=== PATIENT | male | born 1985 | race African-American/Black ===

== ENCOUNTER 2024-02-17 10:28 | Emergency (ER) | payer OTHER, SELFPAY ==
--- NOTE | ~2024-02-17 | XR_ITS ---
EXAMINATION: XR THORACIC SPINE CLINICAL INFORMATION: Pain. COMPARISON: None available. TECHNIQUE: 3 views of the thoracic spine were obtained. FINDINGS: Thoracic spinal alignment is anatomic in the sagittal projection. Vertebral body heights are preserved. Intervertebral disc space heights are preserved. There is no acute fracture. Visualized lungs are clear. There are degenerative changes at C5-6 and C6-7. XR/XR thoracic spine 3V IMPRESSION: No acute thoracic spine osseous abnormality. Electronically signed by: Oswaldo Frederick DO 02/17/2024 03:53 PM EDT
[2024-02-17 10:41] VITALS: BP 172/88; PULSE 103; RESP 18; TEMP 37.2; O2SAT 99; BMI 31.3
[2024-02-17 13:10] VITALS: BP 135/84; PULSE 71; RESP 16; TEMP 36.1; O2SAT 98
[2024-02-17 14:45] VITALS: BP 136/94; PULSE 75; RESP 14; TEMP 35.9; O2SAT 98
--- NOTE | 2024-02-17 15:57 | ED.GENADULT ---
HPI - General Adult General Chief complaint: General Medical Stated complaint: back pain Time Seen by Provider: 02/17/24 12:22 History of Present Illness HPI narrative: Patient complains of upper back pain going on for over a year without any major trauma, it waxes and wanes in intensity and he comes here today as it has been hurting more in the last couple of days There is no recent new injury, there is no loss of motor strength there is no loss of sensation no incontinence no changes to bowel or bladder no burning no incontinence no abdominal pain no chest pain Related Data Previous Rx's ?Medication ?Instructions ?Recorded acetaminophen 500 mg tablet 1,000 mg (2 x 500 mg) PO QID PRN 02/17/24 pain #30 tabs ibuprofen 600 mg tablet 600 mg PO Q6H PRN pain #20 tabs 02/17/24 Allergies Allergy/AdvReac Type Severity Reaction Status Date / Time No Known Allergies Allergy Verified 02/17/24 10:47 [facility] Past Medical History Source: nursing notes reviewed Social History Social History Advance Directives: No Advance Directives Information Provided: Yes Do you have a plan to hurt others: No Plan Physical Exam ED Vital Signs: Vital Signs - 24 hr 02/17/24 10:41 02/17/24 13:10 02/17/24 14:45 Temperature 98.9 F 96.9 F 96.6 F L Pulse Rate 103 H 71 75 Respiratory Rate 18 16 14 Blood Pressure 172/88 H 135/84 136/94 H Pulse Oximetry 99 98 98 Oxygen Delivery Method Room Air Room Air Room Air 02/17/24 16:08 Temperature 96.6 F L Pulse Rate 75 Respiratory Rate 14 Blood Pressure 136/94 H Pulse Oximetry 98 Oxygen Delivery Method Room Air BMI result Body Mass Index 31.3 General appearance no distress Head is normocephalic atraumatic Neck is supple Respiratory no distress Chest clear to auscultation bilateral The abdomen soft nontender The back had between the scapula on both sides there is soft tissue tenderness no focal bony tenderness, skin of the back is normal pain is reproduced with certain movements no pain with deep breath Extremities full range of motion x4 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 and sensation is intact and symmetrical Course Course Course Narrative: Thoracic spine x-ray was without significant abnormality, patient is comfortable throughout visit and is referred to primary care and will use Tylenol or Motrin as needed Exam is consistent with musculoskeletal upper back pain Discharge Plan Discharge Clinical Impression: Back pain Patient Disposition: Home, Self-Care Additional Instructions: The pain is likely from muscles and tendon irritation in the back Your x-ray of the thoracic spine was normal no worrisome abnormalities Your exam did not show any signs of any dangerous condition When you get a primary care doctor you can follow-up for physical therapy Tylenol and Motrin may help Return to the ER any time any worse condition or concerns Prescriptions: New acetaminophen 500 mg tablet 1,000 mg PO QID PRN (Reason: pain) Qty: 30 0RF ibuprofen 600 mg tablet 600 mg PO Q6H PRN (Reason: pain) Qty: 20 0RF Interventions: ED Discharge Assessment Last Done: 02/17/24 16:08 Discharge Date/Time: 02/17/24 16:08 Print Language: Margot Stokes
[2024-02-17 16:08] VITALS: BP 136/94; PULSE 75; RESP 14; TEMP 35.9; O2SAT 98
== END 2024-02-17 16:08 | disposition home or self-care (01) ==
PROVIDERS: Emergency Provider Internal Medicine
DX: M54.6 Pain in thoracic spine (principal)
CPT/HCPCS: 72072; 99283

== ENCOUNTER 2024-07-18 13:48 | Outpatient (AMB) | payer OTHER, SELFPAY ==
--- NOTE | 2024-07-18 14:18 | MHC.PC.OV ---
Vital Signs 07/18/24 14:30 Height 5 ft 6.96 in Weight 197 lb 6 oz BMI 30.9 BP 142/92 H Blood Pressure Location Lt brachial Position Sitting Pulse 82 Pulse Source Pulse Oximeter Temp 96.7 F L Temp Source Temporal Artery Scan Pulse Oximetry (%) 97 Oxygen Delivery Method Room Air Intake Visit Reasons: Establish Patient - PHYSICIAN GENERAL INTERNAL MEDICINE Intake Note: The patient is a new arrival seeking to establish care for low back pain (LBP) that has persisted for the past year. Blood pressure was elevated today. The patient has been in the state for the past nine months, having recently moved from [facility]. Chairman Of The Board Required: Yes Chairman Of The Board Language: Mosotho Creole Chairman Of The Board Name: used [id number] [facility] [place] Accompanied by: Self / Same As Patient Allergies No Known Allergies Allergy (Verified 07/18/24 15:10) Medication List - Last Reconciled 07/18/24 by Esteban Hernandez PA-C No Known Home Meds Tobacco use date assessed: 07/18/24 Dental Screening Dental Screen Date: 07/18/24 Did you have a dental visit in the last 12 months?: No Did you have a dental problem in the last 6 months where you did not have access to dental care?: No Was dental information given to patient?: Patient has dentist HPI Establish Patient - PHYSICIAN GENERAL INTERNAL MEDICINE HPI Details The patient is a 38-year-old male presenting with follow-up concerns related to hypertension and a history of cervical pain. He is Mosotho Creole speaking only thus used a remote marine electronics technician for this encounter.. He was initially informed of high blood pressure while in [place] and engaged in periodic hospital follow-ups. He has now observed elevated blood pressure once again, requiring clinical assessment. Complains of neck pain associated with cervical spondylosis which was previously identified on an X-ray revealing degenerative changes at C5-C6. Reports indicate the cervical pain fluctuates in intensity and occasionally migrates to the lower back and arms, causing numbness. FORMERLY [facility], [facility]–1983 Social History (Updated 07/18/24 @ 15:24 by Esteban Hernandez PA-C) Housing: House Patient Tobacco Use Status: Never used Tobacco Tobacco use type: Cigarette e-Cigarette/Vaping Use: Never Used service: No Current occupational status: employed Current occupation: [employer] Cognitive needs: No Hearing needs: No Vision needs: No Questionnaire PHQ-9 Over the last 2 weeks, how often have you been bothered by any of the following problems? 1. Little interest or pleasure in doing things: not at all 2. Feeling down, depressed, or hopeless: not at all 3. Trouble falling or staying asleep, or sleeping too much: not at all 4. Feeling tired or having little energy: not at all 5. Poor appetite or overeating: not at all 6. Feeling bad about yourself - or that you are a failure or have let yourself or your family down: not at all 7. Trouble concentrating on things, such as reading the newspaper or watching television: not at all 8. Moving or speaking so slowly that other people could have noticed. Or the opposite - being so fidgety or restless that you have been moving around a lot more than usual: not at all 9. Thoughts that you would be better off or of hurting yourself in some way: not at all Total score: 0 Depression Screening Interpretation: Negative Depression Screening Done: Yes 88458 - PHQ-9 Billing: Yes Source: Developed by Drs. Garland Durham, Skye Marroquin, Jair Lizarraga and colleagues, with an educational latisha from [employer]. Thrive Questionnaire Date Thrive assessed: 07/18/24 I am a: Patient What is your living situation today?: I have a steady place to live Within the past 12 months, did the food you bought not last and you didn't have the money to get more?: Never true Within the past 12 months, did you worry whether your food would run out before you got money to buy more?: Never true Do you have trouble paying for medicines?: No Do you have trouble getting transportation to medical appointments?: No Do you have trouble paying your heating and electricity bill?: No Do you have trouble taking care of your child, family member or friend?: No Do you have trouble with day-to-day activities such as bathing, preparing meals, shopping, managing finances, etc.?: No Are you currently unemployed and looking for a job?: No Are you interested in more education?: No Please select the resources that you would like help with: None Currently or been in a relationship where the following occur: No concerns reported THRIVE Score: 0 AUDIT C Alcohol Use Questionnaire (AUDIT-C) 1. How often do you have a drink containing alcohol?: Never 3. How often do you have six or more drinks on one occasion?: Never Total Score: 0 ISAMAR-7 AMB Questionnaire ISAMAR-7 Date ISAMAR - 7 assessed: 07/18/24 Source: Developed by Drs. Garland Durham, Skye Marroquin, Jair Lizarraga and colleagues, with an educational latisha from [employer]. Review of Systems Const Denies headache(s) Eyes Denies loss of vision ENT Denies vertigo, Denies dizziness, Denies headache(s) and Denies sore throat Card Denies chest pain, Denies leg edema and Denies lightheadedness Resp Denies cough, Denies hemoptysis and Denies wheezing GI Denies abdominal pain, Denies melena, Denies constipation, Denies diarrhea and Denies vomiting Denies dysuria, Denies urinary frequency and Denies urinary urgency Musc Denies arthralgias, Denies joint swelling, Denies numbness and Denies tingling Neuro Denies Abnormal speech present, Denies behavioral changes, Denies vertigo, Denies dizziness, Denies headache(s), Denies loss of vision, Denies memory loss, Denies numbness and Denies tingling Psych Denies anxiety, Denies behavioral changes, Denies depression, Denies memory loss and Denies panic attacks Pablo/Lymph Denies easy bleeding and Denies easy bruising Aller/Immun Denies wheezing Physical exam (Primary Care) Vital Signs: Last Vital Signs Temp 96.7 F L 07/18/24 14:30 Pulse 82 07/18/24 14:30 BP 142/92 H 07/18/24 14:30 Pulse Ox 97 07/18/24 14:30 Oxygen Delivery Method Room Air 07/18/24 14:30 BMI result Body Mass Index 30.9 Tobacco/Smoking Status: Tobacco use Status Tobacco use date assessed 07/18/24 07/18/24 14:56 Patient Tobacco Use Status Never used Tobacco 07/18/24 15:24 Tobacco use type Cigarette 07/18/24 15:24 e-Cigarette/Vaping Use Never Used 07/18/24 15:24 PHQ-9: PHQ-9 Score PHQ-9: Total score 0 07/18/24 15:12 Depression Screening Interpretation: Negative Thrive Assessment: Date of Thrive Assessment Date Thrive assessed 07/18/24 07/18/24 14:56 Currently or been in a relationship where the following occur: No concerns reported Const General: healthy appearing, no acute distress, alert and awake Nutritional Appearance: well nourished Orientation/consciousness: oriented to person, oriented to place and oriented to time HENMT Ears: TM's normal bilaterally General nose exam: Normal nasal mucous membranes and turbinates present Eyes Conjunctivae: conjunctivae normal Sclerae: sclerae normal Pupils: Equal, round and reactive pupils present Neck Neck: Yes no lymphadenopathy and Yes no JVD Thyroid: Thyroid normal Carotids: no bruits Resp Effort & Inspection: normal respiratory effort and not tachypneic Auscultation: no crackles, no rales, no rhonchi and no wheezes Cardio Rate: regular rate Rhythm: regular rhythm Heart sounds: no murmurs and normal S1 and S2 GI Palpation (GI): Soft to palpation, nontender, no hepatomegaly and no splenomegaly Auscultation: normal bowel sounds Skin General skin exam: no rashes or lesions noted and dry skin Neuro General: oriented to person, oriented to place and oriented to time Cranial nerves: Yes Equal, round and reactive pupils present Speech: No Abnormal speech present Gait exam (Neuro): Normal gait present Motor exam (neuro): no tremor noted Extrem Right upper extremity: full ROM Left upper extremity: full ROM Right lower extremity: full ROM; no edema Left lower extremity: full ROM; no edema Psych Mental Status: mental status grossly normal Speech and movement: Normal speech and movement present Affect: normal affect Attitude: cooperative Thought process: Normal thought process present Coding Level of Care Code New Pt Level 4 (05042) Diagnoses Primary hypertension I10 Hypertension type: primary hypertension Screening for diabetes mellitus (DM) Z13.1 Cervical spine pain M54.2 Class 1 obesity E66.811 Additional Codes PHQ-9 - 86634 - PHQ-9 Billing: Yes ([id number]) Assessment & Plan Assessment & Plan (1) HTN (hypertension): Code(s): I10 - Essential (primary) hypertension Category: Medical Qualifiers: Hypertension type: primary hypertension Qualified Code(s): I10 - Essential (primary) hypertension Plan: Prescribed amlodipine 5 mg once daily for blood pressure management. Follow-up blood pressure assessments to adjust treatment as necessary were recommended. (2) Screening for diabetes mellitus (DM): Code(s): Z13.1 - Encounter for screening for diabetes mellitus Category: Medical Plan: As per HPI (3) Cervical spine pain: Code(s): M54.2 - Cervicalgia Category: Medical Plan: Planned initial conservative management with physical therapy focusing on cervical and upper body exercises. If symptoms persist, further imaging may be considered. (4) Class 1 obesity: Code(s): E66.811 - Obesity, class 1 Category: Medical Plan: Patient does understand his BMI is over 30 will work on being more physically active and adapting to better eating habits to reduce his weight Orders: Orders Microalbumin, Random (w Creat) 07/18/24 I10 - Essential (primary) hypertension Complete Blood Count no Diff 07/18/24 I10 - Essential (primary) hypertension Comprehensive [place]. Panel Fast 07/18/24 I10 - Essential (primary) hypertension XR cervical spine 4V 07/18/24 M54.2 - Cervicalgia PT Evaluation and Treatment 07/18/24 M54.2 - Cervicalgia Medications: New amlodipine 5 mg PO DAILY 30 tabs 3RF 30 days I10 - Essential (primary) hypertension Discontinued ibuprofen Discontinued Reason: Patient no longer taking 600 mg PO Q6H PRN 20 tabs 0RF pain acetaminophen Discontinued Reason: Patient no longer taking 1,000 mg (2 x 500 mg) PO QID PRN 30 tabs 0RF pain
[2024-07-18 14:30] VITALS: BP 142/92; PULSE 82; TEMP 35.9; O2SAT 97; BMI 30.9
== END 2024-07-18 15:43 | disposition home or self-care (01) ==
LOC: HO.HMCH 13:48
PROVIDERS: Visit Provider Physician Assistant
DX: I10 Essential (primary) hypertension (principal); M54.2 Cervicalgia; E66.811 Obesity, class 1; Z68.30 Body mass index [BMI] 30.0-30.9, adult; Z13.1 Encounter for screening for diabetes mellitus

== ENCOUNTER → 2024-07-18 13:48 | Outpatient (BNVA) | payer OTHER, SELFPAY | PROVIDERS: Visit Provider Physician Assistant | DX: I10 Essential (primary) hypertension (principal); M54.2 Cervicalgia; E66.811 Obesity, class 1; Z68.30 Body mass index [BMI] 30.0-30.9, adult; Z71.3 Dietary counseling and surveillance | CPT/HCPCS: 96127; 99202 ==

== ENCOUNTER 2024-07-20 10:46 | Outpatient (REF) | payer OTHER, SELFPAY ==
--- NOTE | ~2024-07-20 | XR_ITS ---
EXAMINATION: XR CERVICAL SPINE CLINICAL INFORMATION: M54.2 - Cervicalgia COMPARISON: None available. TECHNIQUE: 6 views of the cervical spine, inclusive of flexion and extension views, were obtained. FINDINGS: Marginal osteophyte formation and endplate sclerosis decreased intervertebral disc height and bilateral neuroforamina narrowing/stenosis at C5-6. No acute cortical disruption. No gross malalignment. Craniocervical junction is intact. No lytic or blastic lesions. Upper airway is patent. XR/XR cervical spine 4V IMPRESSION: Spondylosis C5-6 resulting in bilateral neuroforamina stenosis. Electronically signed by: Garo Ken MD 07/23/2024 08:48 AM EDT
[2024-07-20 11:33] LABS: Hematocrit 45.4 % (42.0-52.0); Hemoglobin 15.4 g/dl (14.0-18.0); Mean Corpuscular HGB Conc 33.9 g/dl (31.0-36.0); Mean Corpuscular Hemoglobin 27.2 pg (27.0-33.0); Mean Corpuscular Volume 80.1 fL (80.0-98.0); Mean Platelet Volume 9.7 fL (9.4-12.4); Platelet Count 289 X10*3/uL (160-400); Red Blood Count 5.67 X10*6/uL (4.60-5.80); Red Cell Distribution Width 13.7 % (11.0-16.0); White Blood Count 7.2 X10*3/uL (4.8-10.8)
[2024-07-20 12:15] LABS: Alanine Aminotransferase 40 U/L (0-40); Albumin Level 4.3 g/dL (3.5-5.0); Alkaline Phosphatase 114 U/L (39-117); Anion Gap 11 (12-20); Aspartate Amino Transferase 27 U/L (5-37); Bilirubin Total 0.5 mg/dL (0.0-1.0); Blood Urea Nitrogen 11 mg/dL (9-16); Calcium 9.6 mg/dL (8.4-10.2); Carbon Dioxide 27 mmol/L (22-29); Chloride 104 mmol/L (96-108); Estimated Glomerular Filt Rate > 60; Glucose Fasting 110 mg/dL (60-99); Sodium 138 mmol/L (135-145); Total Protein 8.2 g/dL (6.5-8.0)
[2024-07-20 12:33] LABS: Creatinine Urine 90.26 mg/dL; Microalbumin Urine < 5.0 mg/L
== END 2024-07-20 10:47 | disposition home or self-care (01) ==
LOC: HO.XRAY 10:46
PROVIDERS: PCP Physician Assistant; Visit Provider Physician Assistant
DX: I10 Essential (primary) hypertension (principal); M54.2 Cervicalgia
CPT/HCPCS: 36415; 72050; 80053; 82043; 82570; 85027

== ENCOUNTER → 2024-07-20 11:10 | Outpatient (BNV) | payer OTHER, SELFPAY | PROVIDERS: PCP Physician Assistant; Visit Provider Radiology Diagnostic Radiology | DX: M54.2 Cervicalgia (principal); M47.812 Spondylosis without myelopathy or radiculopathy, cervical region; M48.02 Spinal stenosis, cervical region | CPT/HCPCS: 72050 ==

== ENCOUNTER 2024-07-21 19:03 | Emergency (ER) | payer OTHER, SELFPAY ==
[2024-07-21 19:14] VITALS: BP 131/86; PULSE 89; RESP 18; TEMP 37.1; O2SAT 95; BMI 33.8
--- NOTE | 2024-07-21 19:16 | ED.GENADULT ---
HPI - General Adult General Chief complaint: Back Pain/Injury Stated complaint: fever Related Data Previous Rx's ?Medication ?Instructions ?Recorded amlodipine 5 mg tablet 5 mg PO DAILY 30 days #30 tabs 07/18/24 Allergies Allergy/AdvReac Type Severity Reaction Status Date / Time No Known Allergies Allergy Verified 07/21/24 19:17 [facility] Social History Social History (Updated 07/18/24 @ 15:24 by Esteban Hernandez PA-C) Housing: House Patient Tobacco Use Status: Never used Tobacco Tobacco use type: Cigarette e-Cigarette/Vaping Use: Never Used Advance Directives: No Advance Directives Information Provided: No service: No Current occupational status: employed Current occupation: [employer] Cognitive needs: No Hearing needs: No Vision needs: No Physical Exam ED Vital Signs: BMI result Body Mass Index 33.8 Course Course Course Narrative: This is an RME performed by Christian Batres CNP: Additional HPI, ROS, PE not included below will be deferred to primary provider. Patient is a 38-year-old male history of HTN, [place] Creole speaking presents to the emergency department for evaluation. He states that tonight ?I did not feel good? states he is not certain whether this may be due to high or low blood pressure. He endorses getting a severe pain diffusely throughout the upper back that results in him feeling ?like I was about to fall? ? near syncope. He does admit that this has been ongoing for approximately 9-12 months. When asked, he states it might occur a few times a week. States he has been seen previously in other emergency departments without identifiable cause, but feels that he has been better taken care of in this hospital in the past which prompted his desire to seek evaluation here tonight. Denies associated dizziness, lightheadedness, chest pain, shortness of breath, numbness or tingling of extremities, nausea, vomiting, ABD pain, symptoms. Plan: Serum labs, EKG, CXR Medical Decision Making Lab Data 07/21/24 19:48 07/21/24 19:48 Labs: Lab Results 07/21/24 07/21/24 Range/Units 19:47 19:48 WBC 7.0 (4.8-10.8) X10*3/uL RBC 5.68 (4.60-5.80) X10*6/uL Hgb 15.4 (14.0-18.0) g/dl Hct 44.0 (42.0-52.0) % MCV 77.5 L (80.0-98.0) fL MCH 27.1 (27.0-33.0) pg MCHC 35.0 (31.0-36.0) g/dl RDW 13.5 (11.0-16.0) % Plt Count 271 (160-400) X10*3/uL MPV 9.3 L (9.4-12.4) fL Immature Gran % (Auto) 0.9 H (0.0-0.4) % Neut % (Auto) 55.9 (45-73) % Lymph % (Auto) 32.8 (20-40) % [place] % (Auto) 8.1 (2-11) % Eos % (Auto) 2.0 (0-4) % Baso % (Auto) 0.3 (0-2) % Lymph # (Auto) 2.3 (1.2-4.9) X10*3/uL [place] # (Auto) 0.6 (0.1-1.2) X10*3/uL Eos # (Auto) 0.1 (0.0-0.4) X10*3/uL Baso # (Auto) 0.0 (0.0-0.2) X10*3/uL Abs Immat Gran (auto) 0.06 H (0.00-0.03) X10*3/uL Absolute Neuts (auto) 3.9 (2.0-8.3) x10*3/uL Absolute Nucleated RBC 0.000 (0.0-0.012) X10*3/uL Nucleated RBC % (auto) 0.0 (0.0-0.2) /100WBC Sodium 135 (135-145) mmol/L Potassium 3.8 (3.3-5.1) mmol/L Chloride 103 (96-108) mmol/L Carbon Dioxide 24 (22-29) mmol/L Anion Gap 12 (12-20) BUN 7 L (9-16) mg/dL Creatinine 0.80 (0.5-1.4) mg/dL Estim Creat Clear Calc 127.4 Estimated GFR > 60 Random Glucose 194 H (60-115) mg/dL Calcium 9.3 (8.4-10.2) mg/dL Total Bilirubin 0.2 (0.0-1.0) mg/dL AST 25 (5-37) U/L ALT 36 (0-40) U/L Alkaline Phosphatase 107 (39-117) U/L Troponin I High Sens < 2.7 (<3.5-35.0) ng/L Total Protein 8.0 (6.5-8.0) g/dL Albumin 4.1 (3.5-5.0) g/dL Lipase 18 (8-78) U/L Discharge Plan Discharge Clinical Impression: Diagnosis unknown Patient Disposition: Left W/O Completing Treatment Prescriptions: No Action amlodipine 5 mg tablet 5 mg PO DAILY 30 Days Qty: 30 3RF Discharge Date/Time: 07/21/24 22:23
--- NOTE | 2024-07-21 19:30 | ECG_ITS ---
Test Reason : BACK PAIN Blood Pressure : */* mmHG Vent. Rate : 88 BPM Atrial Rate : 88 BPM P-R Int : 146 ms QRS Dur : 80 ms QT Int : 320 ms P-R-T Axes : -12 64 -7 degrees QTcB Int : 387 ms Normal sinus rhythm Abnormal QRS-T angle, consider primary T wave abnormality Abnormal ECG No previous ECGs available Referred By: Gricel Batres Electronically Signed By: PRIMO AGUILA MD
[2024-07-21 19:53] LABS: MANUAL DIFF FLAG NO
[2024-07-21 19:55] LABS: Basophils Percent Auto 0.3 % (0-2); Eosinophils Absolute Auto 0.1 X10*3/uL (0.0-0.4); Hemoglobin 15.4 g/dl (14.0-18.0); Imm Gran Abs Auto 0.06 X10*3/uL (0.00-0.03); Imm Gran Pct Auto 0.9 % (0.0-0.4); Lymphocytes Absolute Auto 2.3 X10*3/uL (1.2-4.9); Lymphocytes Percent Auto 32.8 % (20-40); Mean Corpuscular Hemoglobin 27.1 pg (27.0-33.0); Mean Corpuscular Volume 77.5 fL (80.0-98.0); Mean Platelet Volume 9.3 fL (9.4-12.4); Monocytes Absolute Auto 0.6 X10*3/uL (0.1-1.2); Monocytes Percent Auto 8.1 % (2-11); Neutrophils Absolute Auto 3.9 x10*3/uL (2.0-8.3); Neutrophils Percent Auto 55.9 % (45-73); Platelet Count 271 X10*3/uL (160-400); Red Blood Count 5.68 X10*6/uL (4.60-5.80); Red Cell Distribution Width 13.5 % (11.0-16.0)
[2024-07-21 20:12] LABS: Albumin Level 4.1 g/dL (3.5-5.0); Alkaline Phosphatase 107 U/L (39-117); Anion Gap 12 (12-20); Aspartate Amino Transferase 25 U/L (5-37); Bilirubin Total 0.2 mg/dL (0.0-1.0); Blood Urea Nitrogen 7 mg/dL (9-16); Calcium 9.3 mg/dL (8.4-10.2); Carbon Dioxide 24 mmol/L (22-29); Chloride 103 mmol/L (96-108); Creatinine Clr Calc Pharmacy 127.4; Estimated Glomerular Filt Rate > 60; Glucose Random 194 mg/dL (60-115); Lipase 18 U/L (8-78); Potassium 3.8 mmol/L (3.3-5.1); Sodium 135 mmol/L (135-145)
[2024-07-21 20:18] LABS: Troponin-I High Sensitivity < 2.7 ng/L (<3.5-35.0)
[2024-07-21 20:24] LABS: Alanine Aminotransferase 36 U/L (0-40)
== END 2024-07-21 22:23 | disposition left against medical advice (07) ==
PROVIDERS: Nurse Practitioner Family; Emergency Provider Emergency Medicine; PCP Physician Assistant
DX: M54.6 Pain in thoracic spine (principal); R50.9 Fever, unspecified
CPT/HCPCS: 36415; 80053; 83690; 84484; 85025; 93005; 99283

== ENCOUNTER → 2024-07-21 19:30 | Outpatient (BNV) | payer OTHER, SELFPAY | PROVIDERS: Emergency Provider Emergency Medicine; PCP Physician Assistant; Visit Provider Internal Medicine Cardiovascular Disease | DX: R94.31 Abnormal electrocardiogram [ECG] [EKG] (principal); M54.9 Dorsalgia, unspecified | CPT/HCPCS: 93010 ==

== ENCOUNTER 2024-09-18 13:50 | Outpatient (AMB) | payer OTHER, SELFPAY ==
[2024-09-18 14:58] VITALS: BP 128/78; PULSE 80; TEMP 36.2; O2SAT 98
--- NOTE | 2024-09-18 14:58 | A.OFFPC_ITS ---
Vital Signs 09/18/24 14:58 Weight 192 lb 4 oz BP 128/78 Blood Pressure Location Lt brachial Position Sitting Pulse 80 Pulse Source Pulse Oximeter Temp 97.1 F Temp Source Temporal Artery Scan Pulse Oximetry (%) 98 Oxygen Delivery Method Room Air Intake Visit Reasons: 2 Month F/U Weblogic Developer Required: Yes Weblogic Developer Language: Gambian Creole Weblogic Developer Name: used tablet: [id number] Accompanied by: Self / Same As Patient Allergies No Known Allergies Allergy (Verified 09/18/24 15:22) Medication List - Last Reconciled 09/18/24 by Esteban Hernandez PA-C amlodipine 5 mg PO DAILY 30 days Tobacco use date assessed: 07/18/24 Dental Screening Dental Screen Date: 07/18/24 HPI 2 Month F/U HPI Details The patient is a 39-year-old male presenting with follow-up concerns related to hypertension and a history of cervical pain. He is Gambian Creole speaking only thus used a remote galvanizer zinc for this encounter.. Concern--> patient reports having gastric reflux symptoms and abdominal distention at times. He does report having episodes of constipation as well. He feels that he has an internal illness if some kind we. We did discuss the possibility of having H pylori which could cause GERD symptoms. HTN: Blood pressure much improved with amlodpine. Continue on his current dose of amlodipine and advised patient to monitor blood pressure at home. 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 [facility] Social History Housing: House Patient Tobacco Use Status: Never used Tobacco Tobacco use type: Cigarette e-Cigarette/Vaping Use: Never Used service: No Current occupational status: employed Current occupation: [employer] Cognitive needs: No Hearing needs: No Vision needs: No Questionnaire PHQ-9 Over the last 2 weeks, how often have you been bothered by any of the following problems? 1. Little interest or pleasure in doing things: not at all 2. Feeling down, depressed, or hopeless: not at all 3. Trouble falling or staying asleep, or sleeping too much: not at all 4. Feeling tired or having little energy: not at all 5. Poor appetite or overeating: not at all 6. Feeling bad about yourself - or that you are a failure or have let yourself or your family down: not at all 7. Trouble concentrating on things, such as reading the newspaper or watching television: not at all 8. Moving or speaking so slowly that other people could have noticed. Or the opposite - being so fidgety or restless that you have been moving around a lot more than usual: not at all 9. Thoughts that you would be better off or of hurting yourself in some way: not at all Total score: 0 Depression Screening Interpretation: Negative Depression Screening Done: Yes 70607 - PHQ-9 Billing: Yes Source: Developed by Drs. Garland Durham, Skye Marroquin, Jair Lizarraga and colleagues, with an educational latisha from [employer]. Thrive Questionnaire Date Thrive assessed: 07/18/24 I am a: Patient What is your living situation today?: I have a steady place to live Within the past 12 months, did the food you bought not last and you didn't have the money to get more?: I choose not to answer this question Within the past 12 months, did you worry whether your food would run out before you got money to buy more?: I choose not to answer this question Do you have trouble paying for medicines?: I choose not to answer this question Do you have trouble getting transportation to medical appointments?: I choose not to answer this question Do you have trouble paying your heating and electricity bill?: I choose not to answer this question Do you have trouble taking care of your child, family member or friend?: I choose not to answer this question Do you have trouble with day-to-day activities such as bathing, preparing meals, shopping, managing finances, etc.?: I choose not to answer this question Are you currently unemployed and looking for a job?: I choose not to answer this question Are you interested in more education?: I choose not to answer this question Please select the resources that you would like help with: None Currently or been in a relationship where the following occur: I choose not to answer THRIVE Score: 0 AUDIT C Alcohol Use Questionnaire (AUDIT-C) 1. How often do you have a drink containing alcohol?: Never Total Score: 0 ISAMAR-7 AMB Questionnaire ISAMAR-7 Date ISAMAR - 7 assessed: 07/18/24 Feeling nervous, anxious, or on edge: 0 = Not at all Not being able to stop or control worryin = Not at all Worrying too much about different things: 0 = Not at all Trouble relaxin = Not at all Being so restless that it is hard to sit still: 0 = Not at all Becoming easily annoyed or irritable: 0 = Not at all Feeling afraid as if something awful might happen: 0 = Not at all Total ISAMAR-7 score (0-4 normal; 5-9 mild; 10-14 moderate; 15-21 severe): 0 Source: Developed by Drs. Garland Durham, Skye Marroquin, Jair Lizarraga and colleagues, with an educational latisha from [employer]. ISAMAR-7 Assessment Billing ISAMAR-7 Assessment Tool: ISAMAR-7 Assessment 03463 Review of Systems Const Denies headache(s) Eyes Denies loss of vision ENT Denies vertigo, Denies dizziness, Denies headache(s) and Denies sore throat Card Denies chest pain, Denies leg edema and Denies lightheadedness Resp Denies cough, Denies hemoptysis and Denies wheezing GI Denies abdominal pain, Denies melena, Reports constipation, Reports dyspepsia, Reports heartburn, Denies diarrhea and Denies vomiting Denies dysuria, Denies urinary frequency and Denies urinary urgency Musc Denies arthralgias, Denies joint swelling, Denies numbness and Denies tingling Neuro Denies Abnormal speech present, Denies behavioral changes, Denies vertigo, Denies dizziness, Denies headache(s), Denies loss of vision, Denies memory loss, Denies numbness and Denies tingling Psych Denies anxiety, Denies behavioral changes, Denies depression, Denies memory loss and Denies panic attacks Pablo/Lymph Denies easy bleeding and Denies easy bruising Aller/Immun Denies wheezing Physical exam (Primary Care) Vital Signs: Last Vital Signs Temp 97.1 F 09/18/24 14:58 Pulse 80 09/18/24 14:58 BP 128/78 09/18/24 14:58 Pulse Ox 98 09/18/24 14:58 Oxygen Delivery Method Room Air 09/18/24 14:58 Tobacco/Smoking Status: Tobacco use Status Tobacco use date assessed 07/18/24 09/18/24 14:59 Patient Tobacco Use Status Never used Tobacco 09/18/24 14:59 Tobacco use type Cigarette 09/18/24 14:59 e-Cigarette/Vaping Use Never Used 09/18/24 14:59 PHQ-9: PHQ-9 Score PHQ-9: Total score 0 09/18/24 15:22 Depression Screening Interpretation: Negative Thrive Assessment: Date of Thrive Assessment Date Thrive assessed 07/18/24 09/18/24 14:59 Currently or been in a relationship where the following occur: I choose not to answer Const General: healthy appearing, no acute distress, alert and awake Nutritional Appearance: well nourished Orientation/consciousness: oriented to person, oriented to place and oriented to time HENMT Ears: TM's normal bilaterally General nose exam: Normal nasal mucous membranes and turbinates present Eyes Conjunctivae: conjunctivae normal Sclerae: sclerae normal Pupils: Equal, round and reactive pupils present Neck Neck: Yes no lymphadenopathy and Yes no JVD Thyroid: Thyroid normal Carotids: no bruits Resp Effort & Inspection: normal respiratory effort and not tachypneic Auscultation: no crackles, no rales, no rhonchi and no wheezes Cardio Rate: regular rate Rhythm: regular rhythm Heart sounds: no murmurs and normal S1 and S2 GI Palpation (GI): Soft to palpation, nontender, no hepatomegaly and no splenomegaly Auscultation: normal bowel sounds Skin General skin exam: no rashes or lesions noted and dry skin Neuro General: oriented to person, oriented to place and oriented to time Cranial nerves: Yes Equal, round and reactive pupils present Speech: No Abnormal speech present Gait exam (Neuro): Normal gait present Motor exam (neuro): no tremor noted Extrem Right upper extremity: full ROM Left upper extremity: full ROM Right lower extremity: full ROM; no edema Left lower extremity: full ROM; no edema Psych Mental Status: mental status grossly normal Speech and movement: Normal speech and movement present Affect: normal affect Attitude: cooperative Thought process: Normal thought process present Coding Level of Care Code Est Pt Level 4 (59976) Diagnoses Primary hypertension I10 Hypertension type: primary hypertension Cervical spine pain M54.2 Elevated random blood glucose level R73.9 Gastroesophageal reflux disease without esophagitis K21.9 Esophagitis presence: without esophagitis Additional Codes PHQ-9 - 65818 - PHQ-9 Billing: Yes ([id number]) ISAMAR-7 Assessment Billing - ISAMAR-7 Assessment Tool: ISAMAR-7 Assessment 54181 ([id number]) Assessment & Plan Assessment & Plan (1) HTN (hypertension): Code(s): I10 - Essential (primary) hypertension Category: Medical Qualifiers: Hypertension type: primary hypertension Qualified Code(s): I10 - Essential (primary) hypertension Plan: Patient's blood pressure acceptable today in office. Will continue his current dose of amlodipine with goal blood pressure to be below 140/90 (2) Cervical spine pain: Code(s): M54.2 - Cervicalgia Category: Medical Plan: As per HPI patient's cervical spine x-ray did show neural foraminal stenosis. We did discuss starting physical therapy for this though he is considering at this point. (3) Elevated random blood glucose level: Code(s): R73.9 - Hyperglycemia, unspecified Category: Medical Plan: Did note in June of 2024 a elevated random blood sugar. Will send for fasting blood sugar to screen for diabetes. (4) GERD (gastroesophageal reflux disease): Code(s): K21.9 - Gastro-esophageal reflux disease without esophagitis Category: Medical Qualifiers: Esophagitis presence: without esophagitis Qualified Code(s): K21.9 - Gastro-esophageal reflux disease without esophagitis Plan: Patient reporting signs symptoms of GERD. Will supply patient with PPI therapy to use on a daily basis. Advised on dietary modification. Will send for stool test to eval for H pylori he had if positive will treat. Orders: Orders Comprehensive [place]. Panel Fast 09/18/24 R73.9 - Hyperglycemia, unspecified H pylori Ag Stool 09/18/24 K21.9 - Gastro-esophageal reflux disease without eso phagitis Complete Blood Count no Diff 09/18/24 R73.9 - Hyperglycemia, unspecified Hemoglobin A1c 09/18/24 R73.9 - Hyperglycemia, unspecified Medications: New omeprazole 20 mg PO DAILY 30 caps 1RF 30 days K21.9 - Gastro-esophageal reflux disease without esophagitis
== END 2024-09-18 16:00 | disposition home or self-care (01) ==
LOC: HO.HMCH 13:51
PROVIDERS: Visit Provider Physician Assistant
DX: I10 Essential (primary) hypertension (principal); M54.2 Cervicalgia; R73.9 Hyperglycemia, unspecified; K21.9 Gastro-esophageal reflux disease without esophagitis

== ENCOUNTER → 2024-09-18 13:50 | Outpatient (BNVA) | payer OTHER, SELFPAY | PROVIDERS: Visit Provider Physician Assistant | DX: I10 Essential (primary) hypertension (principal); K21.9 Gastro-esophageal reflux disease without esophagitis; M54.2 Cervicalgia; R73.9 Hyperglycemia, unspecified | CPT/HCPCS: 96127; 99212 ==

== ENCOUNTER 2024-12-27 15:00 | Outpatient (AMB) | payer OTHER, SELFPAY ==
[2024-12-27 15:05] VITALS: BP 128/80; PULSE 97; O2SAT 96; BMI 32.1
--- NOTE | 2024-12-27 15:05 | MHC.PC.OV ---
Vital Signs 12/27/24 15:05 Height 5 ft 4 in Weight 187 lb BMI 32.1 BP 128/80 Blood Pressure Location Lt brachial Position Sitting Pulse 97 Pulse Source Pulse Oximeter Pulse Oximetry (%) 96 Oxygen Delivery Method Room Air Intake Visit Reasons: Follow-up hypertension Telecommunications Support Required: Yes Telecommunications Support Language: Kyrgyz Creole Telecommunications Support Name: Saba ID # [id number] Accompanied by: Self / Same As Patient Allergies No Known Allergies Allergy (Verified 12/27/24 15:17) Medication List - Last Reconciled 12/27/24 by Esteban Hernandez PA-C No Known Home Meds Tobacco use date assessed: 12/27/24 Dental Screening Dental Screen Date: 12/27/24 Did you have a dental visit in the last 12 months?: No Did you have a dental problem in the last 6 months where you did not have access to dental care?: No Was dental information given to patient?: No HPI Follow-up hypertension HPI Details The patient is a 39-year-old male presenting with follow-up concerns related to hypertension and a history of cervical pain. He is Kyrgyz Creole speaking only thus used a remote foley artist for this encounter.. Concern--> patient reports having gastric reflux symptoms and abdominal distention at times. He does report having episodes of constipation as well. He feels that he has an internal illness if some kind we. We did discuss the possibility of having H pylori which could cause GERD symptoms. He also reports he is had low libido in his interested in some kind of treatment to help him increasing his libido. HTN: Has been able to lose weight since last office visit. Blood pressure much improved with amlodpine. He reports he ran out of refills and needs a new refill on amlodipine. .. Elevated Fasting blood sugar: Noted elevated last in blood sugar and was recent labs. We did discuss working on lifestyle and dietary modifications. 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 [facility] Social History Housing: House Patient Tobacco Use Status: Never used Tobacco Tobacco use type: Cigarette e-Cigarette/Vaping Use: Never Used service: No Current occupational status: employed Current occupation: [employer] Cognitive needs: No Hearing needs: No Vision needs: No Questionnaire PHQ-9 Over the last 2 weeks, how often have you been bothered by any of the following problems? 1. Little interest or pleasure in doing things: not at all 2. Feeling down, depressed, or hopeless: not at all 3. Trouble falling or staying asleep, or sleeping too much: not at all 4. Feeling tired or having little energy: not at all 5. Poor appetite or overeating: not at all 6. Feeling bad about yourself - or that you are a failure or have let yourself or your family down: not at all 7. Trouble concentrating on things, such as reading the newspaper or watching television: not at all 8. Moving or speaking so slowly that other people could have noticed. Or the opposite - being so fidgety or restless that you have been moving around a lot more than usual: not at all 9. Thoughts that you would be better off or of hurting yourself in some way: not at all Total score: 0 Depression Screening Interpretation: Negative Depression Screening Done: Yes 04590 - PHQ-9 Billing: Yes Source: Developed by Drs. Garland Durham, Skye Marroquin, Jair Lizarraga and colleagues, with an educational latisha from [employer]. Thrive Questionnaire Date Thrive assessed: 09/18/24 I am a: Patient What is your living situation today?: I have a steady place to live Within the past 12 months, did the food you bought not last and you didn't have the money to get more?: I choose not to answer this question Within the past 12 months, did you worry whether your food would run out before you got money to buy more?: I choose not to answer this question Do you have trouble paying for medicines?: I choose not to answer this question Do you have trouble getting transportation to medical appointments?: I choose not to answer this question Do you have trouble paying your heating and electricity bill?: I choose not to answer this question Do you have trouble taking care of your child, family member or friend?: I choose not to answer this question Do you have trouble with day-to-day activities such as bathing, preparing meals, shopping, managing finances, etc.?: I choose not to answer this question Are you currently unemployed and looking for a job?: I choose not to answer this question Are you interested in more education?: I choose not to answer this question Please select the resources that you would like help with: None Currently or been in a relationship where the following occur: I choose not to answer THRIVE Score: 0 AUDIT C Alcohol Use Questionnaire (AUDIT-C) 1. How often do you have a drink containing alcohol?: Never Total Score: 0 ISAMAR-7 AMB Questionnaire ISAMAR-7 Date ISAMAR - 7 assessed: 07/18/24 Feeling nervous, anxious, or on edge: 0 = Not at all Not being able to stop or control worryin = Not at all Worrying too much about different things: 0 = Not at all Trouble relaxin = Not at all Being so restless that it is hard to sit still: 0 = Not at all Becoming easily annoyed or irritable: 0 = Not at all Feeling afraid as if something awful might happen: 0 = Not at all Total ISAMAR-7 score (0-4 normal; 5-9 mild; 10-14 moderate; 15-21 severe): 0 Source: Developed by Drs. Garland Durham, Skye Marroquin, Jair Lizarraga and colleagues, with an educational latisha from [employer]. ISAMAR-7 Assessment Billing ISAMAR-7 Assessment Tool: ISAMAR-7 Assessment 25451 Review of Systems Const Denies headache(s) Eyes Denies loss of vision ENT Denies vertigo, Denies dizziness, Denies headache(s) and Denies sore throat Card Denies chest pain, Denies leg edema and Denies lightheadedness Resp Denies cough, Denies hemoptysis and Denies wheezing GI Denies abdominal pain, Denies melena, Denies constipation, Denies diarrhea and Denies vomiting Denies dysuria, Denies urinary frequency and Denies urinary urgency Musc Denies arthralgias, Denies joint swelling, Denies numbness and Denies tingling Neuro Denies Abnormal speech present, Denies behavioral changes, Denies vertigo, Denies dizziness, Denies headache(s), Denies loss of vision, Denies memory loss, Denies numbness and Denies tingling Psych Denies anxiety, Denies behavioral changes, Denies depression, Denies memory loss and Denies panic attacks Pablo/Lymph Denies easy bleeding and Denies easy bruising Aller/Immun Denies wheezing Physical exam (Primary Care) Vital Signs: Last Vital Signs Pulse 97 12/27/24 15:05 BP 128/80 12/27/24 15:05 Pulse Ox 96 12/27/24 15:05 Oxygen Delivery Method Room Air 12/27/24 15:05 BMI result Body Mass Index 32.1 Tobacco/Smoking Status: Tobacco use Status Tobacco use date assessed 12/27/24 12/27/24 15:14 Patient Tobacco Use Status Never used Tobacco 12/27/24 15:08 Tobacco use type Cigarette 12/27/24 15:08 e-Cigarette/Vaping Use Never Used 12/27/24 15:08 PHQ-9: PHQ-9 Score PHQ-9: Total score 0 12/27/24 15:52 Depression Screening Interpretation: Negative Thrive Assessment: Date of Thrive Assessment Date Thrive assessed 09/18/24 12/27/24 15:08 Currently or been in a relationship where the following occur: I choose not to answer Const General: healthy appearing, no acute distress, alert and awake Nutritional Appearance: well nourished Orientation/consciousness: oriented to person, oriented to place and oriented to time HENMT Ears: TM's normal bilaterally General nose exam: Normal nasal mucous membranes and turbinates present Eyes Conjunctivae: conjunctivae normal Sclerae: sclerae normal Pupils: Equal, round and reactive pupils present Neck Neck: Yes no lymphadenopathy and Yes no JVD Thyroid: Thyroid normal Carotids: no bruits Resp Effort & Inspection: normal respiratory effort and not tachypneic Auscultation: no crackles, no rales, no rhonchi and no wheezes Cardio Rate: regular rate Rhythm: regular rhythm Heart sounds: no murmurs and normal S1 and S2 GI Palpation (GI): Soft to palpation, nontender, no hepatomegaly and no splenomegaly Auscultation: normal bowel sounds Skin General skin exam: no rashes or lesions noted and dry skin Neuro General: oriented to person, oriented to place and oriented to time Cranial nerves: Yes Equal, round and reactive pupils present Speech: No Abnormal speech present Gait exam (Neuro): Normal gait present Motor exam (neuro): no tremor noted Extrem Right upper extremity: full ROM Left upper extremity: full ROM Right lower extremity: full ROM; no edema Left lower extremity: full ROM; no edema Psych Mental Status: mental status grossly normal Speech and movement: Normal speech and movement present Affect: normal affect Attitude: cooperative Thought process: Normal thought process present Coding Level of Care Code Est Pt Level 4 (05323) Diagnoses Primary hypertension I10 Hypertension type: primary hypertension Gastroesophageal reflux disease without esophagitis K21.9 Esophagitis presence: without esophagitis Vasculogenic erectile dysfunction, 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 Will continue his current dose of amlodipine with goal blood pressure to be below 140/90 (2) GERD (gastroesophageal reflux disease): Code(s): K21.9 - Gastro-esophageal reflux disease without esophagitis Category: Medical Qualifiers: Esophagitis presence: without esophagitis Qualified Code(s): K21.9 - Gastro-esophageal reflux disease without esophagitis Plan: Patient reporting signs symptoms of GERD. Patient would like to be evaluate for H pylori. Stool testing lab and will do the lab the lab this week. (3) Erectile dysfunction: Code(s): N52.9 - Male erectile dysfunction, unspecified Category: Medical Qualifiers: Erectile dysfunction type: vasculogenic Vasculogenic erectile dysfunction type: unspecified Qualified Code(s): N52.9 - Male erectile dysfunction, unspecified Plan: The patient is encouraged to increase physical activity and consider medication options, with caution due to potential side effects related to diabetes. Orders: Orders Testosterone, Free/Total 12/27/24 N52.9 - Male erectile dysfunction, unspecified Medications: New amlodipine 5 mg PO DAILY 90 tabs 1RF 90 days I10 - Essential (primary) hypertension
== END 2024-12-27 15:53 | disposition home or self-care (01) ==
LOC: HO.HMCH 15:01
PROVIDERS: Visit Provider Physician Assistant
DX: I10 Essential (primary) hypertension (principal); K21.9 Gastro-esophageal reflux disease without esophagitis; N52.9 Male erectile dysfunction, unspecified

== ENCOUNTER → 2024-12-27 15:00 | Outpatient (BNVA) | payer OTHER, SELFPAY | PROVIDERS: Visit Provider Physician Assistant | DX: I10 Essential (primary) hypertension (principal); K21.9 Gastro-esophageal reflux disease without esophagitis; R73.01 Impaired fasting glucose; M54.12 Radiculopathy, cervical region; N52.9 Male erectile dysfunction, unspecified | CPT/HCPCS: 96127; 99212 ==

== ENCOUNTER 2025-01-04 10:28 | Outpatient (REF) | payer OTHER, SELFPAY ==
[2025-01-04 11:53] LABS: Hematocrit 46.3 % (42.0-52.0); Hemoglobin 15.6 g/dl (14.0-18.0); Mean Corpuscular HGB Conc 33.7 g/dl (31.0-36.0); Mean Corpuscular Hemoglobin 26.8 pg (27.0-33.0); Mean Corpuscular Volume 79.6 fL (80.0-98.0); NRBC Abs Auto 0.000 X10*3/uL (0.0-0.012); NRBC Pct Auto 0.0 /100WBC (0.0-0.2); Platelet Count 244 X10*3/uL (160-400); Red Blood Count 5.82 X10*6/uL (4.60-5.80); White Blood Count 5.8 X10*3/uL (4.8-10.8)
[2025-01-04 12:00] LABS: Hemoglobin A1C 175.2000 umol/L; Total Hemoglobin (HGBA1C) 3926.2480 umol/L
[2025-01-10 15:39] LABS: Testosterone, Free 52.6 pg/mL (35.0-155.0)
== END 2025-01-04 10:29 | disposition home or self-care (01) ==
LOC: HO.LAB 10:28
PROVIDERS: PCP Physician Assistant; Visit Provider Physician Assistant
DX: R73.9 Hyperglycemia, unspecified (principal); N52.9 Male erectile dysfunction, unspecified
CPT/HCPCS: 36415; 80053; 83036; 84402; 84403; 85027

== ENCOUNTER 2025-01-11 07:36 | Outpatient (REF) | payer OTHER, SELFPAY | END 2025-01-11 07:37 | disposition home or self-care (01) | LOC: HO.LNP 07:36 | PROVIDERS: Visit Provider Physician Assistant | DX: K21.9 Gastro-esophageal reflux disease without esophagitis (principal) | CPT/HCPCS: 87338 ==

== ENCOUNTER 2025-03-19 15:16 | Outpatient (AMB) | payer OTHER, SELFPAY ==
--- NOTE | 2025-03-19 15:58 | MHC.PC.OV ---
Vital Signs 03/19/25 15:59 Height 5 ft 4 in Weight 190 lb 8 oz BMI 32.7 BP 130/70 Blood Pressure Location Lt brachial Position Sitting Pulse 80 Pulse Source Pulse Oximeter Temp 97.3 F Temp Source Temporal Artery Scan Pulse Oximetry (%) 97 Oxygen Delivery Method Room Air Intake Visit Reasons: f/u HTN/ Fasting blood sugars Intake Note: Patient is here to follow up on HTN, Fasting blood sugars. Carton Lettering Machine Operator Required: Yes Carton Lettering Machine Operator Language: Welsh [place] Carton Lettering Machine Operator Name: Miller [id number] Information Interpreted: non-clinical & clinical Sample Taker Operator: Not Required per policy Accompanied by: Self / Same As Patient Allergies No Known Allergies Allergy (Verified 03/19/25 16:13) Medication List - Last Reconciled 03/19/25 by Esteban Hernandez PA-C amlodipine 5 mg PO DAILY 90 days Tobacco use date assessed: 03/19/25 Dental Screening Dental Screen Date: 12/27/24 HPI f/u HTN/ Fasting blood sugars HPI Details The patient is a 39-year-old male presenting with follow-up concerns related to hypertension and a history of cervical pain. He is Welsh Creole speaking only thus used a remote wind tunnel technician for this encounter.. Concern--> reports he is having dental issue in 1 of his teeth and is interested in seeing a dentist. Given him phone number for local dentist HTN: Has been able to lose weight since last office visit. Blood pressure much improved with amlodpine. He reports he ran out of refills and needs a new refill on amlodipine. .. Elevated Fasting blood sugar ( pre diabetes) : Noted elevated last in blood sugar and was recent labs. We did discuss working on lifestyle and dietary modifications. Will check an A1c to evaluate for type 2 diabetes [facility] Surgical History No pertinent past surgical history Social History Housing: House Patient Tobacco Use Status: Never used Tobacco Tobacco use type: Cigarette e-Cigarette/Vaping Use: Never Used Second Hand Smoke Exposure: No service: No Current occupational status: employed Current occupation: [employer] Cognitive needs: No Hearing needs: No Vision needs: No Questionnaire Thrive Questionnaire Date Thrive assessed: 09/18/24 I am a: Patient What is your living situation today?: I have a steady place to live Within the past 12 months, did the food you bought not last and you didn't have the money to get more?: I choose not to answer this question Within the past 12 months, did you worry whether your food would run out before you got money to buy more?: I choose not to answer this question Do you have trouble paying for medicines?: I choose not to answer this question Do you have trouble getting transportation to medical appointments?: I choose not to answer this question Do you have trouble paying your heating and electricity bill?: I choose not to answer this question Do you have trouble taking care of your child, family member or friend?: I choose not to answer this question Do you have trouble with day-to-day activities such as bathing, preparing meals, shopping, managing finances, etc.?: I choose not to answer this question Are you currently unemployed and looking for a job?: I choose not to answer this question Are you interested in more education?: I choose not to answer this question Please select the resources that you would like help with: None Currently or been in a relationship where the following occur: I choose not to answer THRIVE Score: 0 ISAMAR-7 AMB Questionnaire ISAMAR-7 Date ISAMAR - 7 assessed: 07/18/24 Source: Developed by Drs. Garland Durham, Skye Marroquin, Jair Lizarraga and colleagues, with an educational latisha from [employer]. Review of Systems Const Denies headache(s) Eyes Denies loss of vision ENT Denies vertigo, Denies dizziness, Denies headache(s) and Denies sore throat Card Denies chest pain, Denies leg edema and Denies lightheadedness Resp Denies cough, Denies hemoptysis and Denies wheezing GI Denies abdominal pain, Denies melena, Denies constipation, Denies diarrhea and Denies vomiting Denies dysuria, Denies urinary frequency and Denies urinary urgency Musc Denies arthralgias, Denies joint swelling, Denies numbness and Denies tingling Neuro Denies Abnormal speech present, Denies behavioral changes, Denies vertigo, Denies dizziness, Denies headache(s), Denies loss of vision, Denies memory loss, Denies numbness and Denies tingling Psych Denies anxiety, Denies behavioral changes, Denies depression, Denies memory loss and Denies panic attacks Pablo/Lymph Denies easy bleeding and Denies easy bruising Aller/Immun Denies wheezing Physical exam (Primary Care) Vital Signs: Last Vital Signs Temp 97.3 F 03/19/25 15:59 Pulse 80 03/19/25 15:59 BP 130/70 03/19/25 15:59 Pulse Ox 97 03/19/25 15:59 Oxygen Delivery Method Room Air 03/19/25 15:59 BMI result Body Mass Index 32.7 Tobacco/Smoking Status: Tobacco use Status Tobacco use date assessed 03/19/25 03/19/25 16:00 Patient Tobacco Use Status Never used Tobacco 03/19/25 16:00 Tobacco use type Cigarette 03/19/25 16:00 e-Cigarette/Vaping Use Never Used 03/19/25 16:00 Thrive Assessment: Date of Thrive Assessment Date Thrive assessed 09/18/24 03/19/25 16:00 Currently or been in a relationship where the following occur: I choose not to answer Const General: healthy appearing, no acute distress, alert and awake Nutritional Appearance: well nourished Orientation/consciousness: oriented to person, oriented to place and oriented to time HENMT Ears: TM's normal bilaterally General nose exam: Normal nasal mucous membranes and turbinates present Eyes Conjunctivae: conjunctivae normal Sclerae: sclerae normal Pupils: Equal, round and reactive pupils present Neck Neck: Yes no lymphadenopathy and Yes no JVD Thyroid: Thyroid normal Carotids: no bruits Resp Effort & Inspection: normal respiratory effort and not tachypneic Auscultation: no crackles, no rales, no rhonchi and no wheezes Cardio Rate: regular rate Rhythm: regular rhythm Heart sounds: no murmurs and normal S1 and S2 GI Palpation (GI): Soft to palpation, nontender, no hepatomegaly and no splenomegaly Auscultation: normal bowel sounds Skin General skin exam: no rashes or lesions noted and dry skin Neuro General: oriented to person, oriented to place and oriented to time Cranial nerves: Yes Equal, round and reactive pupils present Speech: No Abnormal speech present Gait exam (Neuro): Normal gait present Motor exam (neuro): no tremor noted Extrem Right upper extremity: full ROM Left upper extremity: full ROM Right lower extremity: full ROM; no edema Left lower extremity: full ROM; no edema Psych Mental Status: mental status grossly normal Speech and movement: Normal speech and movement present Affect: normal affect Attitude: cooperative Thought process: Normal thought process present Coding Level of Care Code Est Pt Level 4 (65681) Diagnoses Primary hypertension I10 Hypertension type: primary hypertension Impaired glucose metabolism R73.09 Tinea pedis of both feet B35.3 Laterality: bilateral Assessment & Plan Assessment & Plan (1) HTN (hypertension): Code(s): I10 - Essential (primary) hypertension Category: Medical Qualifiers: Hypertension type: primary hypertension Qualified Code(s): I10 - Essential (primary) hypertension Plan: Patient's blood pressure acceptable today in office. Will continue his current dose of amlodipine with goal blood pressure to be below 140/90 (2) Impaired glucose metabolism: Code(s): R73.09 - Other abnormal glucose Category: Medical Plan: Patient's most recent A1c at 6.2 in a prediabetic range. He will work on lifestyle and dietary modifications to reduce his fasting blood sugars. Will place in labs to do fasting and an A1c (3) Tinea pedis: Code(s): B35.3 - Tinea pedis Category: Medical Qualifiers: Laterality: bilateral Qualified Code(s): B35.3 - Tinea pedis Plan: Will supply patient with antifungal cream to use for tinea pedis Orders: Orders Comprehensive [place]. Panel Fast Today R73.09 - Other abnormal glucose Hemoglobin A1c Today R73.09 - Other abnormal glucose Medications: New clotrimazole 1% 1 appl topical BID 30 grams 0RF 4 weeks B35.3 - Tinea pedis Refilled amlodipine 5 mg PO DAILY 90 tabs 1RF 90 days I10 - Essential (primary) hypertension
[2025-03-19 15:59] VITALS: BP 130/70; PULSE 80; TEMP 36.3; O2SAT 97; BMI 32.7
== END 2025-03-19 16:38 | disposition home or self-care (01) ==
LOC: HO.HMCH 15:17
PROVIDERS: PCP Physician Assistant; Visit Provider Physician Assistant
DX: I10 Essential (primary) hypertension (principal); R73.09 Other abnormal glucose; B35.3 Tinea pedis

== ENCOUNTER → 2025-03-19 15:16 | Outpatient (BNVA) | payer OTHER, SELFPAY | PROVIDERS: PCP Physician Assistant; Visit Provider Physician Assistant | DX: I10 Essential (primary) hypertension (principal); R73.03 Prediabetes; R73.09 Other abnormal glucose; B35.3 Tinea pedis | CPT/HCPCS: 99212 ==